=== PATIENT | male | born 1960 | race African-American/Black ===

== ENCOUNTER 2021-04-24 14:32 | Emergency (ER) | payer OTHER, SELFPAY ==
[2021-04-24] MEDS ORDERED: Sodium Chloride 0.9% 1000 ML 1,000 ML IV STA (14:39)
[2021-04-24] MEDS ORDERED: Ativan 2 MG/1 ML VIAL IV ONE (14:39)
[2021-04-24] MEDS ORDERED: Ativan 2 MG/1 ML VIAL ONE (14:40)
[2021-04-24] MEDS ORDERED: Sodium Chloride 0.9% 1000 ML 1,000 ML ONE (14:40)
[2021-04-24 15:12] LABS: Absolute Neutrophil Ct (ANC) 2.19 (1.4-6.9); BASOPHIL % 0.5 % (0.0-0.4); Basophil (Absolute #) 0.02 (0-0.4); Eosinophil (Absolute #) 0 (0-0.5); Hematocrit 40.8 % (42-50); Hemoglobin 12.9 gm/dl (12.5-18.0); Lymphocyte (Absolute #) 1.47 (1.0-4.6); Lymphocytes % 35.9 % (24.0-44.0); Mean Corpuscular Hemoglobin 29.7 pg (26-32); Mean Corpuscular Hgb Concent. 31.6 g/dl (32-36); Mean Platelet Volume 9.5 fl (7.5-11.0); Monocyte (Absolute #) 0.42 (0.0-1.3); Monocytes % 10.2 % (0.0-12.0); Neutrophil % 53.4 % (36.0-66.0); Platelet Count 147 K/mm3 (150-450); Red Blood Count 4.34 M/mm3 (4.1-5.6); Red Cell Distribution Width 14.3 % (11.5-14.0); White Blood Count 4.1 K/mm3 (4.0-10.5)
[2021-04-24 15:26] LABS: ALBUMIN 4.1 g/dL (3.5-5.0); ALKALINE PHOSPHATASE 74 U/L (38-126); ANION GAP 17.5 MEQ/L (5-15); BLOOD UREA NITROGEN 16 mg/dL (9-20); CHLORIDE 105 mmol/L (98-107); Carbon Dioxide 21 mmol/L (22-30); EST GLOMERULAR FILTRATION RATE > 60.0 ML/MIN; Glucose 91 mg/dL (74-106); Potassium 3.7 mmol/L (3.5-5.1); SGOT/AST 36 U/L (17-59); SGPT/ALT 23 U/L (0-50); SODIUM 139 mmol/L (137-145); Total Protein 6.8 g/dL (6.3-8.2)
[2021-04-24 15:39] VITALS: O2SAT 98
[2021-04-24] MEDS ORDERED: Dilantin 100 MG PO ONE (15:45)
[2021-04-24 16:39] LABS: Appearance CLEAR (CLEAR); Bilirubin NEGATIVE (NEGATIVE); Blood SMALL Ery/ul (0-5); Epithelial Cells RARE /HPF (FEW); Glucose NEGATIVE (NEGATIVE); Ketones NEGATIVE (NEGATIVE); Leukocyte Esterase NEGATIVE (NEGATIVE); Mucus SLIGHT /HPF (NEGATIVE); Nitrite NEGATIVE (NEGATIVE); Protein,Urine Dip 100 (Negative); Specific Gravity 1.018 (1.005-1.025); Urobilinogen NEGATIVE mg/dL (0-1); WBC 0-2 /HPF (0-5)
[2021-04-24 16:41] LABS: Bacteria NONE SEEN /HPF (NEGATIVE)
[2021-04-24 16:57] LABS: Amphetamine,Urine NEGATIVE (NEGATIVE); Barbiturate,Urine NEGATIVE (NEGATIVE); Benzodiazepine,Urine POSITIVE (NEGATIVE); Cocaine,Urine NEGATIVE (NEGATIVE); Methadone,Urine NEGATIVE (NEGATIVE); Opiate,Urine NEGATIVE (NEGATIVE); PCP,Urine NEGATIVE (NEGATIVE); THC,Urine NEGATIVE (NEGATIVE)
[2021-04-24 17:04] VITALS: BP 114/99; PULSE 61
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
--- NOTE | 2021-04-24 19:45 | XRAY ---
Indication: Seizure. Comparison: None Portable chest limited as left costophrenic angle not included. Remaining heart, lungs, and bony thorax are normal with a few incidental calcified granulomas.
== END 2021-04-24 17:44 | disposition home or self-care (01) ==
LOC: ED 14:32
DX: G40.909 Epilepsy, unspecified, not intractable, without status epilepticus (principal)
CPT/HCPCS: 36000; 36415; 71045; 80053; 80185; 80307; 81001; 83605; 85025; 87086; 96360; 96374; 99284; J2060; A9270-GY